=== PATIENT | male | born 1955 | race Caucasian/White ===

== ENCOUNTER → 2024-01-01 09:19 | Outpatient (REF) | payer BC, SELFPAY | LOC: HWRCS 09:19 | PROVIDERS: ATTENDING PHYSICIAN Internal Medicine Cardiovascular Disease; FAMILY PHYSICIAN Family Medicine | DX: I48.0 Paroxysmal atrial fibrillation (principal); I50.32 Chronic diastolic (congestive) heart failure; I10 Essential (primary) hypertension | CPT/HCPCS: 93306 ==